=== PATIENT | male | born 1935 | race Caucasian/White ===

== ENCOUNTER 2023-07-03 14:59 | Inpatient (IN) | payer OTHER ==
[2023-07-03] MEDS ORDERED: SODIUM PHOSPHATE/NA BIPHOS 133 ML ENEMA PR ONE (18:13)
[2023-07-03] MEDS ORDERED: SODIUM CHLORIDE 1,000 ML IV ONE (18:28)
[2023-07-03] MEDS ORDERED: LIDOCAINE 5% TOPICAL PATCH ONE (18:42)
[2023-07-03] MEDS ORDERED: ACETAMINOPHEN 1000 MG/100 ML BAG IVPB ONE (18:42)
[2023-07-03] MEDS ORDERED: LIDOCAINE 5% TOPICAL PATCH TP ONE (18:42)
[2023-07-03] MEDS ORDERED: ACETAMINOPHEN INJECTION 100 ML IVPB ONE (18:42)
[2023-07-03 19:08] LABS: HEMATOCRIT 36.7 % (35.4-49); HEMOGLOBIN 12.6 G/dL (11.7-16.9); MCH 32.9 pg (25.7-33.7); MCHC 34.2 g/dl (32.0-35.9); MEAN PLT VOLUME 8.3 fl (7.5-11.1); RBC 3.82 10^6/uL (4.00-5.60); RDW 13.6 % (11.9-15.9); WHITE BLOOD COUNT 4.8 10^3/uL (4.0-10.8)
[2023-07-03 19:23] LABS: ALBUMIN 3.6 g/dl (3.4-5.0); BILIRUBIN,TOTAL 1.1 mg/dl (0.2-1); CALCIUM 8.7 mg/dl (8.5-10.1); CREATININE 0.6 mg/dl (0.6-1.3); TOT PROT 6.2 g/dl (6.4-8.2)
[2023-07-03 20:18] LABS: PLATELET ESTIMATE ADEQUATE
[2023-07-03] MEDS ORDERED: BISACODYL 5 MG TABLET.DR (FP) PO ONE (20:30)
[2023-07-03] MEDS ORDERED: DOCUSATE NA 100 MG/10 ML UNIT-DOSE CUPS PO ONE (20:30)
[2023-07-04 03:23] VITALS: BMI 19.2
[2023-07-04] MEDS ORDERED: ACETAMINOPHEN 325 MG TABLET (FP) PO ONE (05:07)
[2023-07-04] MEDS ORDERED: LIDOCAINE PATCH REMOVAL MC SCH (07:00)
[2023-07-04] MEDS ORDERED: methylPREDNISolone 8 MG TABLET PO ONE (07:25)
[2023-07-04 08:52] LABS: CALCIUM 8.7 mg/dl (8.5-10.1); CREATININE 0.7 mg/dl (0.6-1.3); POTASSIUM 3.9 mmol/L (3.5-5.1)
[2023-07-04] MEDS ORDERED: PHENYLEPHRINE HCL/COCOA BUTTER 1 EACH SUPP.RECT PR ONE (08:53)
[2023-07-04] MEDS: LIDOCAINE 5% TOPICAL PATCH TP SCH (09:47)
[2023-07-04] MEDS: ENOXAPARIN NA (PORCINE) 40 MG/0.4 ML DISP.SYRIN SQ SCH (09:47)
[2023-07-04] MEDS ORDERED: POLYETHYLENE GLYCOL (HEALTHYLAX) 3350 17 GM PACKET PO SCH (10:00)
[2023-07-04 11:30] LABS: BASO % 0.7 % (0-2.0); EOS % 1.5 % (0-4.5); HEMOGLOBIN 12.5 GM/dL (11.7-16.9); LYMPH % 20.3 % (8-40); MCH 32.9 pg (25.7-33.7); MCHC 34.6 g/dl (32.0-35.9); MEAN CELL VOLUME 95.1 fl (80-96); MEAN PLT VOLUME 9.5 fl (7.5-11.1); MONO % 10.9 % (3.8-10.2); NEUT % 66.6 % (42.8-82.8); PLATELET COUNT 176 10^3/uL (134-434); RBC 3.79 M/mm3 (4.00-5.60); RDW 12.7 % (11.9-15.9); WHITE BLOOD COUNT 5.8 K/mm3 (4.0-10.0)
[2023-07-04] MEDS ORDERED: PHENYLEPHRINE HCL/COCOA BUTTER 1 EACH SUPP.RECT RC ONE (11:45)
[2023-07-04] MEDS: VITAMINS A AND D TOPICAL OINTMENT 60 GM TUBE TP SCH ×3 (17:21→21:56)
[2023-07-04] MEDS: LIDOCAINE PATCH REMOVAL MC SCH (21:56)
[2023-07-04] MEDS ORDERED: SENNOSIDES 8.6MG TABLET (FP) PO SCH (22:00)
[2023-07-05] MEDS ORDERED: methylPREDNISolone 8 MG TABLET PO ONE (08:00)
[2023-07-05 08:28] LABS: HEMATOCRIT 38.5 % (35.4-49); HEMOGLOBIN 12.9 G/dL (11.7-16.9); MCH 32.4 pg (25.7-33.7); MCHC 33.5 g/dl (32.0-35.9); MEAN CELL VOLUME 96.5 fl (80-96); MEAN PLT VOLUME 9.1 fl (7.5-11.1); PLATELET COUNT 174.8 10^3/uL (134-434); RBC 3.99 10^6/uL (4.00-5.60); RDW 13.3 % (11.9-15.9)
[2023-07-05 09:02] LABS: ALBUMIN 3.2 g/dl (3.4-5.0); BILIRUBIN,TOTAL 0.9 mg/dl (0.2-1); CALCIUM 8.5 mg/dl (8.5-10.1); CREATININE 3.1 mg/dl (0.6-1.3); PHOSPHOROUS 3.8 (2.5-4.9); POTASSIUM 4.2 mmol/L (3.5-5.1); TOT PROT 5.7 g/dl (6.4-8.2)
[2023-07-05] MEDS: FAMOTIDINE 20 MG TABLET PO SCH (10:19)
[2023-07-05] MEDS: ENOXAPARIN NA (PORCINE) 40 MG/0.4 ML DISP.SYRIN SQ SCH (10:19)
[2023-07-05] MEDS: LIDOCAINE 5% TOPICAL PATCH TP SCH (10:19)
[2023-07-05] MEDS ORDERED: methylPREDNISolone 4 MG TABLET PO ONE (12:00)
[2023-07-05] MEDS: VITAMINS A AND D TOPICAL OINTMENT 60 GM TUBE TP SCH ×2 (13:03→18:06)
[2023-07-05] MEDS: SODIUM CHLORIDE 1,000 ML IV SCH (13:04)
[2023-07-05] MEDS: ACETAMINOPHEN 325 MG TABLET (FP) PO PRN (21:35)
[2023-07-06] MEDS: LIDOCAINE PATCH REMOVAL MC SCH ×2 (06:59→22:08)
[2023-07-06] MEDS: VITAMINS A AND D TOPICAL OINTMENT 60 GM TUBE TP SCH ×2 (07:00→11:31)
[2023-07-06] MEDS ORDERED: methylPREDNISolone 8 MG TABLET PO ONE (10:00)
[2023-07-06 10:06] LABS: CALCIUM 8.4 mg/dl (8.5-10.1); CREATININE 5.4 mg/dl (0.6-1.3); POTASSIUM 4.6 mmol/L (3.5-5.1)
[2023-07-06] MEDS: ENOXAPARIN NA (PORCINE) 40 MG/0.4 ML DISP.SYRIN SQ SCH (10:30)
[2023-07-06] MEDS: FAMOTIDINE 20 MG TABLET PO SCH (10:31)
[2023-07-06] MEDS: LIDOCAINE 5% TOPICAL PATCH TP SCH (10:31)
[2023-07-06] MEDS: SODIUM CHLORIDE 0.45% 1,000 ML IV SCH (12:04)
[2023-07-06] MEDS: SODIUM CHLORIDE 1,000 ML IV SCH (12:04)
[2023-07-06] MEDS: TAMSULOSIN HCL 0.4 MG CAP PO SCH (14:56)
[2023-07-07 08:39] LABS: HEMATOCRIT 35.2 % (35.4-49); HEMOGLOBIN 11.8 G/dL (11.7-16.9); MCH 31.8 pg (25.7-33.7); MCHC 33.6 g/dl (32.0-35.9); MEAN PLT VOLUME 8.7 fl (7.5-11.1); PLATELET COUNT 192.1 10^3/uL (134-434); RBC 3.71 10^6/uL (4.00-5.60); WHITE BLOOD COUNT 7.1 10^3/uL (4.0-10.8)
[2023-07-07 09:53] LABS: BILIRUBIN,TOTAL 0.6 mg/dl (0.2-1); CALCIUM 8.5 mg/dl (8.5-10.1); CREATININE 0.7 mg/dl (0.6-1.3); POTASSIUM 4.2 mmol/L (3.5-5.1); TOT PROT 5.3 g/dl (6.4-8.2)
[2023-07-07] MEDS: TAMSULOSIN HCL 0.4 MG CAP PO SCH (09:57)
[2023-07-07] MEDS: LIDOCAINE 5% TOPICAL PATCH TP SCH (09:58)
[2023-07-07] MEDS: ENOXAPARIN NA (PORCINE) 40 MG/0.4 ML DISP.SYRIN SQ SCH (09:58)
[2023-07-07] MEDS ORDERED: methylPREDNISolone 4 MG TABLET PO ONE (10:00)
[2023-07-07] MEDS: FAMOTIDINE 20 MG TABLET PO SCH (10:00)
[2023-07-07] MEDS: SODIUM CHLORIDE 0.45% 1,000 ML IV SCH (12:34)
[2023-07-07] MEDS: VITAMINS A AND D TOPICAL OINTMENT 60 GM TUBE TP SCH ×2 (13:14→19:13)
[2023-07-07] MEDS: ACETAMINOPHEN 325 MG TABLET (FP) PO PRN (23:13)
[2023-07-07] MEDS: LIDOCAINE PATCH REMOVAL MC SCH (23:16)
[2023-07-08] MEDS: VITAMINS A AND D TOPICAL OINTMENT 60 GM TUBE TP SCH ×5 (01:17→19:18)
[2023-07-08] MEDS: ENOXAPARIN NA (PORCINE) 40 MG/0.4 ML DISP.SYRIN SQ SCH (10:00)
[2023-07-08] MEDS: TAMSULOSIN HCL 0.4 MG CAP PO SCH (10:00)
[2023-07-08] MEDS: LIDOCAINE 5% TOPICAL PATCH TP SCH (10:00)
[2023-07-08] MEDS: FAMOTIDINE 20 MG TABLET PO SCH (10:00)
[2023-07-08] MEDS ORDERED: MAGNESIUM CITRATE 300 ML BOTTLE PO ONE (10:02)
[2023-07-08] MEDS: DOCUSATE SODIUM 100 MG CAPSULE (FP) PO SCH ×3 (10:56→22:32)
[2023-07-08] MEDS: POLYETHYLENE GLYCOL (HEALTHYLAX) 3350 17 GM PACKET PO SCH ×3 (10:56→22:32)
[2023-07-08] MEDS: LIDOCAINE PATCH REMOVAL MC SCH (22:32)
[2023-07-09] MEDS: VITAMINS A AND D TOPICAL OINTMENT 60 GM TUBE TP SCH ×3 (06:37→18:20)
[2023-07-09] MEDS: DOCUSATE SODIUM 100 MG CAPSULE (FP) PO SCH ×3 (06:37→22:46)
[2023-07-09] MEDS: POLYETHYLENE GLYCOL (HEALTHYLAX) 3350 17 GM PACKET PO SCH ×3 (06:37→22:46)
[2023-07-09] MEDS: TAMSULOSIN HCL 0.4 MG CAP PO SCH (09:51)
[2023-07-09] MEDS: FAMOTIDINE 20 MG TABLET PO SCH (09:51)
[2023-07-09] MEDS: LIDOCAINE 5% TOPICAL PATCH TP SCH (09:52)
[2023-07-09] MEDS: ACETAMINOPHEN 325 MG TABLET (FP) PO PRN ×2 (09:52→18:18)
[2023-07-09] MEDS: ENOXAPARIN NA (PORCINE) 40 MG/0.4 ML DISP.SYRIN SQ SCH (09:53)
[2023-07-09] MEDS: LIDOCAINE PATCH REMOVAL MC SCH (22:46)
[2023-07-09 23:16] VITALS: RESP 18
[2023-07-10] MEDS: VITAMINS A AND D TOPICAL OINTMENT 60 GM TUBE TP SCH ×2 (04:07→06:27)
[2023-07-10] MEDS: DOCUSATE SODIUM 100 MG CAPSULE (FP) PO SCH (06:27)
[2023-07-10] MEDS: POLYETHYLENE GLYCOL (HEALTHYLAX) 3350 17 GM PACKET PO SCH (06:27)
[2023-07-10 06:49] VITALS: BP 120/55; PULSE 63; TEMP 97.6
[2023-07-10] MEDS: ACETAMINOPHEN 325 MG TABLET (FP) PO PRN (10:37)
[2023-07-10] MEDS: LIDOCAINE 5% TOPICAL PATCH TP SCH (10:37)
[2023-07-10] MEDS: ENOXAPARIN NA (PORCINE) 40 MG/0.4 ML DISP.SYRIN SQ SCH (10:37)
[2023-07-10] MEDS: FAMOTIDINE 20 MG TABLET PO SCH (10:37)
[2023-07-10] MEDS: TAMSULOSIN HCL 0.4 MG CAP PO SCH (10:37)
== END 2023-07-10 12:59 | disposition home or self-care (01) | DRG 551 ==
LOC: FER 14:59 → FM/S 07-04 01:41 → OBSVTOIN 07-04 07:20
PROVIDERS: ADMIT Internal Medicine
DX: M48.061 Spinal stenosis, lumbar region without neurogenic claudication (principal); E43 Unspecified severe protein-calorie malnutrition; N17.9 Acute kidney failure, unspecified; N13.8 Other obstructive and reflux uropathy; Z68.1 Body mass index [BMI] 19.9 or less, adult; R64 Cachexia; N40.1 Benign prostatic hyperplasia with lower urinary tract symptoms; M54.16 Radiculopathy, lumbar region; R33.9 Retention of urine, unspecified; K59.00 Constipation, unspecified
CPT/HCPCS: 36415; 72131-TC; 74176-TC; 76775-TC; 80048; 80053; 81003; 83735; 84100; 84439; 84443; 85025; 85027; 87086; 87635; 97116-GP; 97162-GP; 99285-25; G0378

== ENCOUNTER 2023-09-30 00:39 | Observation (INO) | payer OTHER ==
[2023-09-30] MEDS ORDERED: LIDOCAINE HCL 2% JELLY 6 ML TP ONE (01:27)
[2023-09-30] MEDS: LIDOCAINE HCL 2% 100 MG/5 ML DISP.SYRIN IVPUSH ONE (01:55)
[2023-09-30 01:59] LABS: HEMATOCRIT 38.3 % (35.4-49); HEMOGLOBIN 12.9 GM/dL (11.7-16.9); MCH 31.8 pg (25.7-33.7); MCHC 33.7 g/dl (32.0-35.9); MEAN CELL VOLUME 94.5 fl (80-96); MEAN PLT VOLUME 7.3 fl (7.5-11.1); PLATELET COUNT 221 10^3/uL (134-434); RBC 4.05 M/mm3 (4.00-5.60); RDW 13.9 % (11.9-15.9); WHITE BLOOD COUNT 15.7 K/mm3 (4.0-10.0)
[2023-09-30] MEDS: LIDOCAINE HCL 2% JELLY 10 ML CARTRIDGE UR ONE (01:59)
[2023-09-30 02:00] LABS: EPI CELLS 0 /uL (0-25.1); HYALINE CASTS 1 /uL (0-3.1); PH,URINE 7.5 (5.0-8.0); URINE APPEARANCE CLOUDY; URINE BACTERIA 7094 /uL (0-1359); URINE BILIRUBIN NEGATIVE (NEGATIVE); URINE COLOR ORANGE; URINE GLUCOSE (UA) NEGATIVE (NEGATIVE); URINE KETONE NEGATIVE (NEGATIVE); URINE LEUK ESTERASE 2+ (NEGATIVE); URINE NITRITE POSITIVE (NEGATIVE); URINE PROTEIN 2+ (NEGATIVE); URINE RBC 4606 /uL (0-23.9); URINE WBC 693 /uL (0-25.8)
[2023-09-30 02:05] LABS: INR 1.11 (0.83-1.09); PROTHROMBIN TIME (PATIENT) 12.9 SEC (9.7-13.0)
[2023-09-30 02:08] LABS: ACTIVATED PTT 25.1 SECONDS (25.2-36.5)
[2023-09-30 02:26] LABS: POTASSIUM 3.6 mmol/L (3.5-5.1)
[2023-09-30 02:28] LABS: CALCIUM 8.8 mg/dL (8.5-10.1)
[2023-09-30 02:29] LABS: ALBUMIN 3.1 g/dl (3.4-5.0); BLOOD UREA NITROGEN 29.3 mg/dL (7-18)
[2023-09-30 02:32] LABS: CREATININE 0.7 mg/dL (0.55-1.3)
[2023-09-30 02:33] LABS: BILIRUBIN,TOTAL 0.8 mg/dL (0.2-1); TOT PROT 6.6 g/dl (6.4-8.2)
[2023-09-30] MEDS: CEFTRIAXONE 1 GM in DEXTROSE 5%-WATER - 100 ML IVPB ONE (02:34)
[2023-09-30] MEDS ORDERED: CEFTRIAXONE 1 GM/50 ML BAG ONE (02:35)
[2023-09-30 02:53] LABS: ANISOCYTOSIS 1+; MACROCYTOSIS 0
[2023-09-30 05:41] VITALS: BMI 20.9
[2023-09-30] MEDS ORDERED: traMADol HCL 50 MG TABLET PO PRN (07:24)
[2023-09-30] MEDS ORDERED: ACETAMINOPHEN 325 MG TABLET (FP) PO PRN (07:25)
[2023-09-30 08:17] LABS: HEMOGLOBIN 11.3 GM/dL (11.7-16.9); MCH 31.4 pg (25.7-33.7); MCHC 32.4 g/dl (32.0-35.9); MEAN CELL VOLUME 96.8 fl (80-96); MEAN PLT VOLUME 7.9 fl (7.5-11.1); PLATELET COUNT 214 10^3/uL (134-434); RBC 3.61 M/mm3 (4.00-5.60); WHITE BLOOD COUNT 29.9 K/mm3 (4.0-10.0)
[2023-09-30 08:21] LABS: POTASSIUM 3.5 mmol/L (3.5-5.1)
[2023-09-30 08:22] LABS: CALCIUM 8.7 mg/dL (8.5-10.1)
[2023-09-30 08:23] LABS: BLOOD UREA NITROGEN 26.2 mg/dL (7-18)
[2023-09-30 08:26] LABS: CREATININE 0.7 mg/dL (0.55-1.3)
[2023-09-30] MEDS: LIDOCAINE 4% PATCH TP SCH (09:52)
[2023-09-30] MEDS: TAMSULOSIN HCL 0.4 MG CAP PO SCH (09:52)
[2023-09-30] MEDS: FAMOTIDINE 20 MG TABLET PO SCH (09:52)
[2023-09-30] MEDS: SODIUM CHLORIDE 1,000 ML IV SCH (09:53)
[2023-09-30 11:00] LABS: ANISOCYTOSIS 0; HELMET CELLS 0; HOWELL-JOLLY BODIES 0; MACROCYTOSIS 0; OVALOCYTE 0; ROULEAU 0; SICKELED CELLS 0; TARGET CELLS 0; TEAR DROP CELLS 0; TOXIC GRANULATION 0
[2023-09-30] MEDS: LIDOCAINE PATCH REMOVAL MC SCH (21:31)
[2023-10-01 08:07] LABS: HEMATOCRIT 29.7 % (35.4-49); HEMOGLOBIN 9.8 GM/dL (11.7-16.9); MCH 31.8 pg (25.7-33.7); MCHC 33.1 g/dl (32.0-35.9); MEAN PLT VOLUME 7.7 fl (7.5-11.1); PLATELET COUNT 170 10^3/uL (134-434); RBC 3.09 M/mm3 (4.00-5.60); RDW 13.7 % (11.9-15.9); WHITE BLOOD COUNT 14.4 K/mm3 (4.0-10.0)
[2023-10-01 08:19] LABS: POTASSIUM 3.7 mmol/L (3.5-5.1)
[2023-10-01 08:22] LABS: BLOOD UREA NITROGEN 25.5 mg/dL (7-18); CALCIUM 7.7 mg/dL (8.5-10.1)
[2023-10-01 08:25] LABS: CREATININE 0.5 mg/dL (0.55-1.3)
[2023-10-01 08:26] LABS: BILIRUBIN,TOTAL 0.5 mg/dL (0.2-1); TOT PROT 5.3 g/dl (6.4-8.2)
[2023-10-01 08:36] LABS: ALBUMIN 2.4 g/dl (3.4-5.0)
[2023-10-01] MEDS: CEFTRIAXONE 1 GM in DEXTROSE 5%-WATER - 50 ML IVPB SCH (10:55)
[2023-10-01 21:39] VITALS: RESP 20
[2023-10-02 06:43] VITALS: BP 123/60; PULSE 78; TEMP 98.5
== END 2023-10-02 11:39 ==
LOC: JER 00:39 → JERBED 03:17 → J8W 04:47
PROVIDERS: ADMIT Internal Medicine; ATTEND Internal Medicine
PROC: 3E03329 Introduction of Other Anti-infective into Peripheral Vein, Percutaneous Approach (ICD-10-PCS; principal; 2023-09-30)
PROC: 0T9B70Z Drainage of Bladder with Drainage Device, Via Natural or Artificial Opening (ICD-10-PCS; 2023-09-30)
DX: N39.0 Urinary tract infection, site not specified (principal); R31.9 Hematuria, unspecified; Z46.6 Encounter for fitting and adjustment of urinary device; I25.10 Atherosclerotic heart disease of native coronary artery without angina pectoris; G89.29 Other chronic pain; M54.9 Dorsalgia, unspecified; E03.9 Hypothyroidism, unspecified; K59.00 Constipation, unspecified; E78.5 Hyperlipidemia, unspecified; I11.0 Hypertensive heart disease with heart failure; Z91.013 Allergy to seafood; Z88.8 Allergy status to other drugs, medicaments and biological substances
CPT/HCPCS: 0241U-QW; 36415; 51702; 71045-TC-FY; 80048; 80053; 81003; 84443; 85025; 85027; 85610; 85730; 86850; 86900; 86901; 87040; 87086; 93005; 93010; 96365; 96366; 97116-GP; 97161-GP; 99285-25; G0378

== ENCOUNTER 2024-07-29 16:47 | Emergency (ER) | payer OTHER ==
[2024-07-29 17:02] VITALS: RESP 17; BMI 23.2
[2024-07-29] MEDS ORDERED: ACETAMINOPHEN INJECTION 100 ML ONE (17:58)
[2024-07-29 18:01] LABS: VENOUS BASE EXCESS -0.8 mmol/L (-2-2); VENOUS PCO2 40.8 mmHg (38-52); VENOUS PH 7.39 (7.310-7.410)
[2024-07-29] MEDS: ACETAMINOPHEN 1000 MG/100 ML BAG IVPB ONE (18:04)
[2024-07-29 18:06] LABS: BASO % 0.1 % (0-2.0); HEMOGLOBIN 12.3 GM/dL (11.7-16.9); LYMPH % 5.6 % (8-40); MCH 29.3 pg (25.7-33.7); MCHC 33.1 g/dl (32.0-35.9); MEAN CELL VOLUME 88.4 fl (80-96); MEAN PLT VOLUME 8.5 fl (7.5-11.1); MONO % 5.5 % (3.8-10.2); NEUT % 88.8 % (42.8-82.8); PLATELET COUNT 171 10^3/uL (134-434); RBC 4.19 M/mm3 (4.00-5.60); WHITE BLOOD COUNT 8.1 K/mm3 (4.0-10.0)
[2024-07-29 18:10] LABS: EPI CELLS 13 /uL (0-25.1); HYALINE CASTS 1 /uL (0-3.1); URINE APPEARANCE CLEAR; URINE BACTERIA 3 /uL (0-1359); URINE BILIRUBIN NEGATIVE (NEGATIVE); URINE COLOR YELLOW; URINE GLUCOSE (UA) NEGATIVE (NEGATIVE); URINE KETONE TRACE (NEGATIVE); URINE LEUK ESTERASE NEGATIVE (NEGATIVE); URINE NITRITE NEGATIVE (NEGATIVE); URINE PROTEIN 2+ (NEGATIVE); URINE RBC 323 /uL (0-23.9); URINE UROBILINOGEN 0.2 mg/dL (0.2-1.0)
[2024-07-29 18:18] LABS: INR 1.23 (0.83-1.09); PROTHROMBIN TIME (PATIENT) 14.1 SEC (9.7-13.0)
[2024-07-29 18:21] LABS: ACTIVATED PTT 29.5 SECONDS (25.2-36.5)
[2024-07-29 18:22] LABS: POTASSIUM 4.1 mmol/L (3.5-5.1)
[2024-07-29 18:24] LABS: CALCIUM 8.3 mg/dL (8.5-10.1)
[2024-07-29 18:25] LABS: ALBUMIN 3.2 g/dl (3.4-5.0); BLOOD UREA NITROGEN 30.8 mg/dL (7-18)
[2024-07-29 18:31] LABS: BILIRUBIN,TOTAL 0.6 mg/dL (0.2-1)
[2024-07-29 21:36] VITALS: TEMP 97.9
[2024-07-29] MEDS: SODIUM CHLORIDE 0.9% 500 ML INFUS.BAG IV ONE (21:46)
[2024-07-30 02:42] VITALS: BP 124/63; PULSE 60
== END 2024-07-30 05:33 ==
LOC: JER 16:47
PROC: 3E033NZ Introduction of Analgesics, Hypnotics, Sedatives into Peripheral Vein, Percutaneous Approach (ICD-10-PCS; principal; 2024-07-29)
DX: R53.1 Weakness (principal); R31.9 Hematuria, unspecified; R19.7 Diarrhea, unspecified; R10.30 Lower abdominal pain, unspecified; Z20.822 Contact with and (suspected) exposure to COVID-19
CPT/HCPCS: 0241U-QW; 36415; 70450-TC; 71045-TC-FY; 74176-TC; 80053; 81003; 82803; 83605; 84484; 85025; 85610; 85730; 86850; 86900; 86901; 87086; 93005; 93010; 99285-25; J0131